=== PATIENT | male | born 1940 | race Caucasian/White ===

== ENCOUNTER 2024-01-04 09:43 | Outpatient (CLI) | payer MEDICARE ==
[2024-01-04] MEDS ORDERED: Iopamidol 300 61% 100 ML VIAL FS ONE (11:12)
== END 2024-01-04 09:44 | disposition home or self-care (01) ==
LOC: CSHCT 09:43
PROVIDERS: ATTEND Internal Medicine Cardiovascular Disease
DX: I50.30 Unspecified diastolic (congestive) heart failure (principal); I71.41 Pararenal abdominal aortic aneurysm, without rupture; R91.8 Other nonspecific abnormal finding of lung field; J98.09 Other diseases of bronchus, not elsewhere classified; D35.02 Benign neoplasm of left adrenal gland
CPT/HCPCS: 71260; Q9967

== ENCOUNTER 2024-04-11 08:37 | Emergency (ER) | payer MEDICARE ==
[2024-04-11] MEDS ORDERED: methylPREDNISolone Sod Succ/PF 125 MG/2 ML VIAL ONE (09:19)
[2024-04-11 09:21] LABS: #Basophils 0.04 10x3/uL (0.0-0.2); #Eosinophils 0.29 10x3/uL (0.0-0.5); #Monocytes 0.94 10x3/uL (0.0-1.1); %Basophils 0.4 % (0.0-2.0); %Eosinophils 3.1 % (0.0-6.0); %Lymphocytes 14.9 % (18.0-47.0); %Neutrophils 70.2 % (40.0-75.0); Hematocrit 43.1 % (38.8-50.0); Mean Corpuscular HGB CONC 30.2 g/dL (32.0-36.0); Mean Corpuscular Volume 82.7 fL (81.2-95.1); Mean Platelet Volume 9.2 fL (7.4-10.4); Platelet Count 316 10x3/uL (150-450); Red Blood Cell (RBC) Count 5.21 10x6/uL (4.32-5.72); White Blood Cell (WBC) Count 9.4 10x3/uL (3.5-10.5)
[2024-04-11] MEDS ORDERED: Ipratropium/Albuterol 3 ML NEB ONE (09:29)
[2024-04-11 09:36] LABS: ALT (SGPT) 43 U/L (8-55); AST (SGOT) 18 U/L (5-34); Albumin 3.2 g/dL (3.4-4.8); Alkaline Phosphatase 98 U/L (40-110); Anion Gap 13 mmol/L (10-20); BUN (Urea Nitrogen) 19 mg/dL (8.4-25.7); Bilirubin, Total 0.5 mg/dL (0.2-1.2); Calc. Creatinine Clearance 0 mL/min (70-130); Carbon Dioxide 26 mmol/L (23-31); Chloride 106 mmol/L (98-107); Estimated GFR 66; Globulin 2.5 g/dL (2.4-3.5); Glucose 100 mg/dL (83-110); Potassium 4.3 mmol/L (3.5-5.1); Protein, Total 5.7 g/dL (5.8-8.1); Sodium 141 mmol/L (136-145)
[2024-04-11 09:42] LABS: Troponin I Less than 0.010 ng/mL (< 0.028)
[2024-04-11] MEDS ORDERED: Iopamidol 370 76% 100 ML VIAL ONE (11:29)
== END 2024-04-11 11:28 | disposition home or self-care (01) ==
LOC: CSHERS 08:37
DX: J18.9 Pneumonia, unspecified organism (principal); I11.0 Hypertensive heart disease with heart failure; I50.9 Heart failure, unspecified; E11.9 Type 2 diabetes mellitus without complications; F17.210 Nicotine dependence, cigarettes, uncomplicated; Z95.0 Presence of cardiac pacemaker
CPT/HCPCS: 71275; 80053; 83880; 84484; 85025; 93005; 94640; 96374; 99285; J2919; 36415; J7620

== ENCOUNTER 2024-04-13 07:17 | Emergency (ER) | payer MEDICARE ==
[2024-04-13] MEDS ORDERED: Albuterol 2.5 MG (3 mL) NEB ONE (07:29)
[2024-04-13] MEDS ORDERED: Ipratropium/Albuterol 3 ML NEB ONE (07:30)
[2024-04-13] MEDS ORDERED: methylPREDNISolone Sod Succ/PF 125 MG/2 ML VIAL ONE (07:51)
[2024-04-13] MEDS ORDERED: Azithromycin 500 MG VIAL ONE (07:52)
[2024-04-13] MEDS ORDERED: Magnesium 2 GM/50 ML BAG (IN WATER) ONE (07:52)
[2024-04-13] MEDS ORDERED: cefTRIAXone (ROCEPHIN) 2 GM VIAL ONE (07:52)
[2024-04-13 08:00] LABS: #Basophils 0.01 10x3/uL (0.0-0.2); #Eosinophils 0.17 10x3/uL (0.0-0.5); #Neutrophils 11.06 10x3/uL (1.5-8.4); %Basophils 0.1 % (0.0-2.0); %Eosinophils 1.2 % (0.0-6.0); %Lymphocytes 13.2 % (18.0-47.0); %Monocytes 5.7 % (0.0-10.0); %Neutrophils 78.8 % (40.0-75.0); Hematocrit 41.8 % (38.8-50.0); Hemoglobin 12.6 g/dL (13.5-17.5); Mean Corpuscular HGB CONC 30.1 g/dL (32.0-36.0); Mean Corpuscular Hemoglobin 24.9 pg (27.0-33.0); Mean Corpuscular Volume 82.4 fL (81.2-95.1); Mean Platelet Volume 8.7 fL (7.4-10.4); Platelet Count 365 10x3/uL (150-450); RBC Distribution Width 15.3 % (11.5-14.5); Red Blood Cell (RBC) Count 5.07 10x6/uL (4.32-5.72)
[2024-04-13 08:15] LABS: ALT (SGPT) 32 U/L (8-55); AST (SGOT) 13 U/L (5-34); Albumin 3.5 g/dL (3.4-4.8); Alkaline Phosphatase 87 U/L (40-110); Anion Gap 15 mmol/L (10-20); BUN (Urea Nitrogen) 22 mg/dL (8.4-25.7); Bilirubin, Total 0.6 mg/dL (0.2-1.2); Calc. Creatinine Clearance 0 mL/min (70-130); Calcium 9.3 mg/dL (7.8-10.44); Carbon Dioxide 24 mmol/L (23-31); Chloride 107 mmol/L (98-107); Estimated GFR 61; Globulin 2.4 g/dL (2.4-3.5); Glucose 108 mg/dL (83-110); Potassium 4.3 mmol/L (3.5-5.1); Protein, Total 5.9 g/dL (5.8-8.1); Sodium 142 mmol/L (136-145)
[2024-04-13 08:17] LABS: Troponin I 0.012 ng/mL (< 0.028)
== END 2024-04-13 15:37 | disposition short-term general hospital (02) ==
LOC: CSHERS 07:17
DX: J18.9 Pneumonia, unspecified organism (principal); I11.0 Hypertensive heart disease with heart failure; I50.9 Heart failure, unspecified; E11.9 Type 2 diabetes mellitus without complications; I48.91 Unspecified atrial fibrillation; F17.210 Nicotine dependence, cigarettes, uncomplicated; Z95.0 Presence of cardiac pacemaker
CPT/HCPCS: 71045; 80053; 83605; 83880; 84484; 85025; 87428; 93005; 94640; J0456; J0696; J2919; J3475; J7611; J7620

== ENCOUNTER 2024-12-03 06:01 | Day surgery (SDC) | payer MEDICARE ==
[2024-12-03 07:27] LABS: #Basophils 0.04 10x3/uL (0.0-0.2); #Eosinophils 0.05 10x3/uL (0.0-0.5); #Monocytes 1.06 10x3/uL (0.0-1.1); #Neutrophils 7.80 10x3/uL (1.5-8.4); %Basophils 0.4 % (0.0-2.0); %Eosinophils 0.5 % (0.0-6.0); %Lymphocytes 13.1 % (18.0-47.0); %Monocytes 10.2 % (0.0-10.0); %Neutrophils 74.7 % (40.0-75.0); Hematocrit 35.4 % (38.8-50.0); Hemoglobin 11.0 g/dL (13.5-17.5); Mean Corpuscular Hemoglobin 25.8 pg (27.0-33.0); Mean Corpuscular Volume 83.1 fL (81.2-95.1); Platelet Count 144 10x3/uL (150-450); Red Blood Cell (RBC) Count 4.26 10x6/uL (4.32-5.72); White Blood Cell (WBC) Count 10.42 10x3/uL (3.5-10.5)
[2024-12-03 07:37] LABS: Anion Gap 15 mmol/L (10-20); BUN (Urea Nitrogen) 28 mg/dL (8.4-25.7); Calc. Creatinine Clearance 0 mL/min (70-130); Calcium 9.0 mg/dL (7.8-10.44); Carbon Dioxide 22 mmol/L (23-31); Chloride 110 mmol/L (98-107); Glucose 101 mg/dL (83-110); Potassium 4.3 mmol/L (3.5-5.1); Sodium 143 mmol/L (136-145)
[2024-12-03] MEDS ORDERED: Lidocaine 1% PF 5 ML VIAL ONE (07:37)
[2024-12-03] MEDS ORDERED: PROPOFOL 0 ML ONE (07:37)
[2024-12-03] MEDS ORDERED: PHENYLEPHRINE-NS 100 MCG/ML 10 ML SYRINGE ONE (07:45)
[2024-12-03 09:40] VITALS: BP 161/82; TEMP 97.8
== END 2024-12-03 08:15 | disposition home or self-care (01) ==
LOC: CSHSDC 06:01
PROVIDERS: ATTEND Specialist
DX: I48.91 Unspecified atrial fibrillation (principal); Z53.9 Procedure and treatment not carried out, unspecified reason; I48.92 Unspecified atrial flutter; Z88.5 Allergy status to narcotic agent
CPT/HCPCS: 80048; 85025; 93005; J2704